=== PATIENT | female | born 1950 | race Caucasian/White ===

== ENCOUNTER 2018-09-12 11:14 | Emergency (ER) | payer BC ==
[2018-09-12 13:23] VITALS: BP 113/74
--- NOTE | 2018-09-12 15:53 | ED Physician Documentation ---
PD HPI URI - Stated complaint Stated Complaint: COUGH,SORE THROAT - Chief complaint Chief Complaint: Heent - Additional information Additional information: 68-year-old female presents the emergency department with 3 days of nasal congestion, sore throat, chills, body aches and feeling feverish. The patient's only used tea with honey in it. No other attempts at symptom management. No reports of shortness of breath or productive cough. No other associated symptoms. Symptoms are described as moderate Review of Systems Constitutional: reports: Fever, Chills, Myalgias, Fatigue Eyes: denies: Discharge Ears: denies: Ear pain Nose: reports: Congestion Throat: reports: Sore throat Respiratory: reports: Cough Skin: denies: Rash Neurologic: denies: Generalized weakness PD PAST MEDICAL HISTORY - Past Medical History Past Medical History: Yes Cardiovascular: Hypertension Musculoskeletal: Chronic back pain - Past Surgical History Past Surgical History: Yes /FINANCIAL DEALERS: Other - Allergies Allergies/Adverse Reactions: Allergies Allergy/AdvReac Type Severity Reaction Status Date / Time No Known Drug Allergies Allergy Verified 09/12/18 12:03 - Social History Does the pt smoke?: No Smoking Status: Never smoker Does the pt drink ETOH?: No Does the pt have substance abuse?: No - Immunizations Immunizations are current?: Yes PD ED PE NORMAL - General General: Alert and oriented X 3, No acute distress - HEENT HEENT: Atraumatic, PERRL, EOMI, Ears normal, Moist mucous membranes, Pharynx benign - Neck Neck: No adenopathy - Cardiac Cardiac: RRR, Strong equal pulses - Respiratory Respiratory: No respiratory distress - Derm Derm: Normal color - Extremities Extremities: No deformity - Neuro Neuro: Alert and oriented X 3, Normal speech - Psych Psych: Normal affect Results - Vitals Vitals: Vital Signs - 24 hr 09/12/18 09/12/18 12:00 13:22 Temperature 37.5 C 36.9 C Heart Rate 101 H 95 Respiratory 16 18 Rate Blood Pressure 116/81 H 113/74 O2 Saturation 100 97 Oxygen O2 Source Room air PD MEDICAL DECISION MAKING - ED course ED course: Well-appearing, nontoxic well-hydrated individual. The patient's symptoms to be Viral in nature and the patient appears appropriate for discharge and ongoing outpatient management. I discussed warning signs and recommended returning to the emergency department for any worsening or any concerns Departure - Departure Disposition: 01 Home, Self Care Clinical Impression: Viral URI Condition: Good Instructions: ED Viral Syndrome, ED URI Viral Follow-Up: RICHARD INMAN MD [Primary Care Provider] - Within 1 week Comments: You declined a dose of a steroid to help with your symptoms Please return to the emergency department any point for reevaluation
== END 2018-09-12 15:59 | disposition home or self-care (01) ==
LOC: ED 11:14
DX: J06.9 Acute upper respiratory infection, unspecified (principal); B97.89 Other viral agents as the cause of diseases classified elsewhere; I10 Essential (primary) hypertension
CPT/HCPCS: 99283

== ENCOUNTER 2021-04-13 21:55 | Outpatient (CLI) | payer OTHER, BC | END 2021-04-13 21:56 | disposition critical access hospital (66) | LOC: EMS 21:55 | DX: Z04.1 Encounter for examination and observation following transport accident (principal); R07.89 Other chest pain | CPT/HCPCS: A0425; A0429 ==

== ENCOUNTER 2021-04-13 22:25 | Emergency (ER) | payer OTHER, BC ==
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
[2021-04-13] MEDS ORDERED: BUFFERED LIDOCAINE 10 ML SYRINGE SUBQ STA (22:53)
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
[2021-04-14] MEDS ORDERED: BUFFERED LIDOCAINE 10 ML SYRINGE SUBQ STA (00:06)
[2021-04-14] MEDS ORDERED: IOVERSOL 320 100 ML VIAL IVP ONE ×2 (00:28→01:57)
[2021-04-14 00:54] LABS: BASOPHILS # (AUTO) 0.1 10^3/uL (0.0-0.1); BASOPHILS % (AUTO) 0.3 %; EOSINOPHILS # (AUTO) 0.1 10^3/uL (0.0-0.7); EOSINOPHILS % (AUTO) 0.3 %; HGB - HEMOGLOBIN 14.4 g/dL (12.0-16.0); LYMPHOCYTES # (AUTO) 1.2 10^3/uL (1.5-3.5); LYMPHOCYTES % (AUTO) 6.8 %; MEAN CORPUSCULAR HEMOGLOBIN 30.4 pg (27.0-31.0); MEAN CORPUSCULAR HGB CONC 34.3 g/dL (32.0-36.0); MEAN CORPUSCULAR VOLUME 88.6 fL (81.0-99.0); MEAN PLATELET VOLUME 8.5 fL (7.9-10.8); MONOCYTES # (AUTO) 1.2 10^3/uL (0.0-1.0); MONOCYTES % (AUTO) 6.5 %; NEUTROPHILS # (AUTO) 15.4 10^3/uL (1.5-6.6); NEUTROPHILS % (AUTO) 85.2 %; PLT - PLATELET COUNT 331 10^3/uL (130-450); RED BLOOD COUNT 4.74 10^6/uL (4.20-5.40)
[2021-04-14] MEDS ORDERED: BACITRACIN ZINC OINT 1 PACKET TOP STA (01:18)
[2021-04-14 01:26] LABS: CALCIUM 10.3 mg/dL (8.5-10.3); CREATININE 0.6 mg/dL (0.4-1.0); POTASSIUM 2.8 mmol/L (3.5-5.0)
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
[2021-04-14] MEDS ORDERED: POTASSIUM CHLORIDE 20 MEQ TABLET PO STA (02:48)
[2021-04-14] MEDS ORDERED: HYDROcod/ACET 5/325 Prepack 4 PO STA (02:48)
[2021-04-14] MEDS ORDERED: KETOROLAC 30 MG/ML VIAL IVP STA (02:48)
[2021-04-14 03:31] VITALS: BP 123/80
== END 2021-04-14 03:25 | disposition home or self-care (01) ==
LOC: EDUNIT# → ED 22:25
DX: S61.411A Laceration without foreign body of right hand, initial encounter (principal); S22.20XA Unspecified fracture of sternum, initial encounter for closed fracture; V89.2XXA Person injured in unspecified motor-vehicle accident, traffic, initial encounter; Y93.89 Activity, other specified; Y92.410 Unspecified street and highway as the place of occurrence of the external cause; E87.6 Hypokalemia
CPT/HCPCS: 12002; 36415; 71046; 71260; 80048; 85025; 93005; 96374; 99284; A9270; Q9967

== ENCOUNTER 2023-07-25 15:44 | Outpatient (CLI) | payer OTHER | END 2023-07-25 15:45 | disposition EMS.NT | LOC: EMS 15:44 | DX: M25.512 Pain in left shoulder (principal); W18.39XA Other fall on same level, initial encounter; Y93.K1 Activity, walking an animal ==

== ENCOUNTER 2023-07-25 17:00 | Emergency (ER) | payer BC, OTHER ==
[2023-07-25 17:09] VITALS: BP 120/65
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
[2023-07-25] MEDS ORDERED: HYDROcod/ACET 5/325 Prepack 4 PO STA (18:28)
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
[2023-07-25 19:16] VITALS: O2SAT 99
== END 2023-07-25 19:08 | disposition home or self-care (01) ==
LOC: ED 17:00
DX: S42.202A Unspecified fracture of upper end of left humerus, initial encounter for closed fracture (principal); W18.30XA Fall on same level, unspecified, initial encounter; Y93.K1 Activity, walking an animal; I10 Essential (primary) hypertension
CPT/HCPCS: 99283; 99284

== ENCOUNTER 2023-08-02 08:00 | Outpatient (CLI) | payer OTHER ==
--- NOTE | 2023-08-02 15:44 | XRAY Report ---
PROCEDURE: Shoulder 3 View LT INDICATIONS: LEFT SHOULDER FRACTURE TECHNIQUE: 4 views of the shoulder were acquired. COMPARISON: Left shoulder radiographs 07/25/2023 FINDINGS: Bones: Comminuted impacted fracture of the proximal humeral head and neck is again seen. The greater tuberosity component is mildly displaced. Overall alignment does not appear significantly changed wh en compared to the radiographs from 07/25/2023. Degenerative changes are seen at the acromioclavicular joint. Soft tissues: No suspicious soft tissue calcifications. The visualized lungs are within normal limi ts. IMPRESSION: Comminuted mildly displaced and impacted fracture of the proximal humeral head and neck. Alignment pérez s not significant changed when compared to the radiographs from 07/25/2023. Reviewed by: Ralph Riggins MD on 08/02/2023 3:43 PM PST Approved by: Ralph Riggins MD on 08/02/2023 3:43 PM PST Station ID: [id number]
== END 2023-08-02 23:59 | disposition home or self-care (01) ==
LOC: DI.WOS 08:00
PROVIDERS: ATTEND Orthopaedic Surgery
DX: S42.292D Other displaced fracture of upper end of left humerus, subsequent encounter for fracture with routine healing (principal)

== ENCOUNTER 2023-08-10 09:45 | Outpatient (CLI) | payer OTHER ==
--- NOTE | 2023-08-10 15:46 | XRAY Report ---
PROCEDURE: Shoulder 3 View LT INDICATIONS: LEFT SHOULDER FRACTURE TECHNIQUE: 3 views of the shoulder were acquired. COMPARISON: X-ray shoulder 08/02/2023 FINDINGS: Bones: Stable appearance of humeral head fracture extending to the humeral neck and greater tuberosi ty. There is minimal inferior subluxation at the glenohumeral joint space. Alignment is overall stabl e. Moderate to severe acromioclavicular narrowing. No suspicious bony lesions. Visualized ribs appea r intact. Soft tissues: No suspicious soft tissue calcifications. The visualized lungs are within normal limi ts. IMPRESSION: Stable appearance of humeral head and neck fracture. Reviewed by: Luz Pratt MD on 08/10/2023 3:45 PM PST Approved by: Luz Pratt MD on 08/10/2023 3:45 PM PST Station ID: [id number]
== END 2023-08-10 23:59 | disposition home or self-care (01) ==
LOC: DI.WOS 09:45
PROVIDERS: ATTEND Orthopaedic Surgery
DX: S42.232A 3-part fracture of surgical neck of left humerus, initial encounter for closed fracture (principal)